=== PATIENT | male | born 1985 | race Caucasian/White ===

== ENCOUNTER 2018-01-24 22:06 | Emergency (ER) | payer BC, OTHER ==
[2018-01-25] MEDS: TETRACAINE 0.5% OPHTH SOLN 4ML OD (00:15)
[2018-01-25] MEDS: ERYTHROMYCIN OPHTH OINT OD (00:30)
== END 2018-01-25 00:45 | disposition home or self-care (01) ==
LOC: M ED 01-25 00:45
DX: S05.01XA Injury of conjunctiva and corneal abrasion without foreign body, right eye, initial encounter (principal); X58.XXXA Exposure to other specified factors, initial encounter; Y92.89 Other specified places as the place of occurrence of the external cause; Z88.1 Allergy status to other antibiotic agents
CPT/HCPCS: 99283

== ENCOUNTER → 2020-11-03 | Outpatient (CLI) | payer OTHER, BC ==
[~2020-11-03] MED LIST: ERYTOIN8 OD
[2020-11-03 18:46] LABS: ALBUMIN 4.4 GM/DL (3.2-5.2); BILIRUBIN,DIRECT 0.3 MG/DL (0.0-0.2); BILIRUBIN,TOTAL 1.7 MG/DL (0.2-1.0); TOTAL PROTEIN 7.2 GM/DL (6.4-8.2)
== END ==
LOC: M WUC 11:34
PROVIDERS: ATTEND Physician Assistant
DX: B35.1 Tinea unguium (principal)

== ENCOUNTER → 2020-12-27 | Outpatient (REF) | payer OTHER, BC ==
[2020-12-27 17:16] LABS: ALBUMIN 4.2 GM/DL (3.2-5.2); BILIRUBIN,DIRECT 0.2 MG/DL (0.0-0.2); BILIRUBIN,TOTAL 0.8 MG/DL (0.2-1.0); TOTAL PROTEIN 7.3 GM/DL (6.4-8.2)
== END ==
LOC: M WUC 15:35 → M LAB REF 15:35
PROVIDERS: ATTEND Physician Assistant
DX: B35.1 Tinea unguium (principal)